=== PATIENT | female | born 1970 | race Caucasian/White ===

== ENCOUNTER 2021-03-22 11:35 | Outpatient (CLI) | payer OTHER ==
[2021-03-22 16:18] LABS: FOLLICLE STIMULATING HORMONE 76.79 mIU/mL
[2021-03-22 16:19] LABS: LUTEINIZING HORMONE 29.93 mIU/mL
[2021-03-23 04:09] LABS: PROGESTERONE <0.5 ng/mL
[2021-03-25 14:16] LABS: DHEA SULFATE 150 mcg/dL (19-231)
[2021-03-26 18:11] LABS: DIHYDROTESTOSTERONE <5 ng/dL (< OR = 20)
[2021-03-27 12:41] LABS: ENDOMYSIAL ANTIBODY SCR IGA NEGATIVE (NEGATIVE); GLIADIN (DEAMIDATED) AB IGA <1.0 U/mL; GLIADIN (DEAMIDATED) AB IGG <1.0 U/mL; IMMUNOGLOBULIN A 154 mg/dL (47-310); TISSUE TRANSGLUTAMINASE IGA <1.0 U/mL; TISSUE TRANSGLUTAMINASE IGG <1.0 U/mL
== END 2021-03-22 11:36 | disposition home or self-care (01) ==
LOC: LAB.S 11:35
PROVIDERS: ATTEND Acupuncturist
DX: N95.1 Menopausal and female climacteric states (principal); R19.7 Diarrhea, unspecified; K57.91 Diverticulosis of intestine, part unspecified, without perforation or abscess with bleeding
CPT/HCPCS: 36415; 80327; 81599; 82627; 82672; 82784; 83001; 83002; 83516; 84144; 84403; 86255